=== PATIENT | female | born 1990 | race Caucasian/White ===

== ENCOUNTER 2016-11-23 01:18 | Emergency (ER) | payer OTHER ==
[~2016-11-23 01:18] MED LIST: MYLICON EQUIVAL80 MG PO; OXYCODONE/ACETA1 TA1 PO
--- NOTE | 2016-11-23 01:56 | ED CLINICAL REPORT ---
Clinical Report - Physicians/Mid Levels [facility] [address] [place] [address] 11/23/2016 1:20 Patient: JUAN PONCE Time Seen: 01:27. Arrived- By ambulance. Historian- EMS personnel. HISTORY OF PRESENT ILLNESS Chief Complaint: DECREASED MENTAL STATUS. "Has been drinking". The patient is described as having decreased responsiveness. This started just prior to arrival and is still present. It was gradual in onset and has been constant. The patient has had alcohol consumption recently. No recent drug use. No weakness, numbness or recent fall. She has had difficulty walking. Usually is alert and oriented X3 and usually has normal mobility. Similar symptoms previously: Recent medical care: Not recently seen/assessed. REVIEW OF SYSTEMS No fever, headache, head injury, chest pain or difficulty breathing. No cough, sputum production, blurred vision, sore throat or abdominal pain. No nausea, diarrhea, black stools, difficulty with urination or skin rash. No vomiting or bloody stools. All systems otherwise negative, except as recorded above. PAST HISTORY ( PROBLEMS: Vaginitis. Vaginal Discharge. Discomfort of . [place] Gonzalez Contractions [RuleOut]). Medications: None. Allergies: No Known Drug Allergy. SOCIAL HISTORY Occasional alcohol use. Under the influence in E.D. No drug use. Residence: [place]. ADDITIONAL NOTES The nursing notes have been reviewed. PHYSICAL EXAM Vital Signs: 11/23/2016 01:23 BP: 129/62. HR: 90. RR: 14. O2 saturation: 98%. Temp: 98.4 F. Appearance: The patient's speech is slurred and odor of alcohol is present. Head: Head atraumatic. ENT: Normal ENT inspection. Airway intact. Moist mucous membranes. Pharynx normal. Neck: Normal inspection. Neck supple. CVS: Normal heart rate and rhythm. Heart sounds normal. Pulses normal. Respiratory: No respiratory distress. Breath sounds normal. Abdomen: Soft and nontender. Back: Normal inspection. Skin: Skin warm and dry. Normal skin color. No rash. Normal skin turgor. Extremities: Extremities exhibit normal ROM. No lower extremity edema. Neuro: Alert. Oriented X 3. Abnormal speech. No motor deficit. No sensory deficit. Reflexes normal. LABS, X-RAYS, AND EKG Pulse Oximetry: 11/23/2016 01:23 O2 saturation: 98%. (FIO2 - room air). Interpretation: normal. PROGRESS AND PROCEDURES Course of Care: After discussion of risks and benefits, pt left AMA with her boyfriend. She is alert and oriented x 4. Patient/family counseled. Old ED records reviewed. Disposition: Discharged (left AMA). CLINICAL IMPRESSION Acute mental status change with stupor. Uncomplicated alcohol intoxication. INSTRUCTIONS Drink plenty of fluids. No alcohol. Warnings: Further evaluation is necessary. It is very important to follow up with a physician. GENERAL WARNINGS: Return or contact your physician immediately if your condition worsens or changes unexpectedly, if not improving as expected, or if other problems arise. Follow-up: Follow up with your doctor in two days. (Electronically signed by Austen Stevens DO 11/23/2016 2:11)
--- NOTE | 2016-11-23 01:56 | ED NURSING NOTES ---
Clinical Report - Nurses [facility] [address] [place] [address] 11/23/2016 1:20 Patient: JUAN PONCE TRIAGE Triage time 0123. Acuity: LEVEL 3. Chief Complaint: ALTERED MENTAL STATUS and DISORIENTED and DECREASED RESPONSIVENESS. --: Balwinder West R.N. 01:23 11/23/16. BP: 129/62. HR: 90. RR: 14. O2 saturation: 98%. Temp: 98.4 F. Pain level now 0/10. --: Balwinder West R.N. Weight: 77.1 kg stated. Height/Length: 64 inches Per Patient. BMI: 29.2. --:25 Balwinder West R.N. Medications None. --:24 Balwinder West R.N. Allergies No Known Drug Allergy. --:24 Balwinder West R.N. History Arrived by EMS. Historian: patient. This started today. ( pt at home drinking. family called 911 when pt passed out and became difficult to arouse.). 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 See EMS report. SOCIAL HX: Occasional alcohol use. No drug use. --: Balwinder West R.N. PROBLEMS: Vaginitis. Vaginal Discharge. Discomfort of . . Care. LNMP - Last Normal Menstrual Period. OB History. --:24 Balwinder West R.N. [place] Gonzalez Contractions [RuleOut]. --01:24 Balwinder West R.N. Interventions ID band on patient. --:26 Balwinder West R.N. PHYSICAL ASSESSMENT To room via stretcher. GENERAL / NEURO / PSYCH: Alert. Speech within normal limits. Patient appears well-nourished and neat and clean. HEENT: Pupils equal, round and reactive to light. RESPIRATORY: Respirations not labored. Breath sounds within normal limits. CVS: Capillary refill less than 2 seconds. GI / : Abdomen soft and nontender. SKIN: Skin is warm and dry. Normal skin turgor. --01:27 Balwinder West R.N. ( pt waited for EMS to leave room and sat up and started speaking coherently and without difficulty. pt does seem intoxicated but is no longer difficult to arouse. pt refuses any and all treatments. pt did consent to breathalyzer only. pt demanding we provide her sister's phone number despite our not having it.). --01:48 Balwinder West R.N. NURSING PROGRESS NOTES Head of bed elevated. Reassurance given. Patient identifiers checked. Call light placed in reach. Bed placed in lowest position. Brakes of bed on. --01:27 Balwinder West R.N. 01:43 11/23/2016 IV NS with Normal Saline 1 Liter, Folic Acid 1 mg/mL, Multivitamin Concentrate Intravenous 1 amp/L, Thiamine HCl 100 mg/L: initial bolus 1000 mL (1000 mL/hr), then 500 mL/hr for X2 (NOW) was refused by patient because of she refuses to stay. Balwinder West --01:59 Balwinder West R.N. 01:49 11/23/2016 IV NS with Normal Saline 1 Liter, Folic Acid 1 mg/mL, Multivitamin Concentrate Intravenous 1 amp/L, Thiamine HCl 100 mg/L: initial bolus 1000 mL (1000 mL/hr), then 500 mL/hr for X2 (NOW) was refused by patient because of uncooperative with care. Dante Horn --01:49 Dante Horn, ER Waiter/Waitress Buffet. DISPOSITION / DISCHARGE Departure time: 156. The patient left the Emergency Department against medical advice; patient was accompanied by spouse. The patient appears to be alert, oriented x4, uncooperative, belligerent and using abusive language (mildly intoxicated). The patient notified the ED staff prior to leaving the department and stated is leaving the ED due to personal reasons (pt states, "its normal to be drunk"). Notified the ED physician and charge nurse of patient departure. Prior to leaving the ED, she was advised to stay for completion of treatment and return if needed. She was informed of the risks of leaving and verbalized understanding of these risks. Patient refused to sign form prior to leaving. She left the Emergency Department ambulatory and via private vehicle. ( pt released into care of spouse who seemed sober, a&ox4, and appropriate. signed forms in place of pt. pt refused d/c vitals). --02:01 Balwinder West R.N. Locked/Released at 11/23/2016 2:02 by Balwinder West R.N.
--- NOTE | 2016-11-23 01:56 | ED ORDER SUMMARY ---
..... 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) (11/23/2016 [facility]) (Cancelled: Patient Refusal1:48 [facility] House Shorer) [facility] (Ack 1:32 [facility]) (Cancelled: Patient Refusal1:48 [facility] House Shorer) CMP Urgent (11/23/2016 [facility]) (Ack 1:32 [facility]) (Cancelled: Patient Refusal1:48 [facility] House Shorer) PT with INR Urgent (11/23/2016 [facility]) (Ack 1:32 [facility]) (Cancelled: Patient Refusal1:48 [facility] ER House Shorer) UA-Culture if indicated Urgent (11/23/2016 [facility]) (Ack 1:32 [facility]) (Cancelled: Patient Refusal1:48 [facility] House Shorer) Urine Urgent (11[facility]23/2016 [facility]) (Ack 1:32 [facility]) (Cancelled: Patient Refusal1:48 [facility] House Shorer) Urine Drug Screen Urgent (11/23/2016 [facility]) (Ack 1:32 [facility]) (Cancelled: Patient Refusal1:48 [facility] House Shorer) Ethyl Alcohol Urgent (11/23/2016 [facility] DO) (Ack 1:32 [facility]) (Cancelled: Patient Refusal1:48 [facility] ER House Shorer) POC Glucose (11/23/2016 [facility] DO) (Cancelled: Patient Refusal1:48 [facility] ER House Shorer) MEDICATION ORDERS: IV FLUIDS: IV NS with Normal Saline 1 Liter, Folic Acid 1 mg/mL, Multivitamin Concentrate Intravenous 1 amp/L, Thiamine HCl 100 mg/L: initial bolus 1000 mL (1000 mL/hr), then 500 mL/hr for X2 (NOW) (01:29 11/23/2016 [facility]) (Ack 1:31 [facility] Brooke) ORDER SHEET NOTES: [Electronically signed by Balwinder West R.N. (02:02 11/23/2016)] [Electronically signed by Austen Stevens DO (02:11 11/23/2016)] [Electronically locked/signed by Balwinder West R.N. (02:02 11/23/2016)]
--- NOTE | 2016-11-23 01:56 | ED NURSING NOTES ---
Clinical Report - Nurses [facility] [address] [place] [address] 11/23/2016 1:20 Patient: JUAN PONCE TRIAGE Triage time 0123. Acuity: LEVEL 3. Chief Complaint: ALTERED MENTAL STATUS and DISORIENTED and DECREASED RESPONSIVENESS. --: Balwinder West R.N. 01:23 11/23/16. BP: 129/62. HR: 90. RR: 14. O2 saturation: 98%. Temp: 98.4 F. Pain level now 0/10. --: Balwinder West R.N. Weight: 77.1 kg stated. Height/Length: 64 inches Per Patient. BMI: 29.2. --:25 Balwinder West R.N. Medications None. --:24 Balwinder West R.N. Allergies No Known Drug Allergy. --:24 Balwinder West R.N. History Arrived by EMS. Historian: patient. This started today. ( pt at home drinking. family called 911 when pt passed out and became difficult to arouse.). Treatment VERIFY REP: None. See EMS report. SOCIAL HX: Occasional alcohol use. No drug use. --: Balwinder West R.N. PROBLEMS: Vaginitis. Vaginal Discharge. Discomfort of . . Care. LNMP - Last Normal Menstrual Period. OB History. --:24 Balwinder West R.N. [place] Gonzalez Contractions [RuleOut]. --01:24 Balwinder West R.N. Interventions ID band on patient. --:26 Balwinder West R.N. PHYSICAL ASSESSMENT To room via stretcher. GENERAL / NEURO / PSYCH: Alert. Speech within normal limits. Patient appears well-nourished and neat and clean. HEENT: Pupils equal, round and reactive to light. RESPIRATORY: Respirations not labored. Breath sounds within normal limits. CVS: Capillary refill less than 2 seconds. GI / : Abdomen soft and nontender. SKIN: Skin is warm and dry. Normal skin turgor. --01:27 Balwinder West R.N. ( pt waited for EMS to leave room and sat up and started speaking coherently and without difficulty. pt does seem intoxicated but is no longer difficult to arouse. pt refuses any and all treatments. pt did consent to breathalyzer only. pt demanding we provide her sister's phone number despite our not having it.). --01:48 Balwinder West R.N. NURSING PROGRESS NOTES Head of bed elevated. Reassurance given. Patient identifiers checked. Call light placed in reach. Bed placed in lowest position. Brakes of bed on. --01:27 Balwinder West R.N. 01:43 11/23/2016 IV NS with Normal Saline 1 Liter, Folic Acid 1 mg/mL, Multivitamin Concentrate Intravenous 1 amp/L, Thiamine HCl 100 mg/L: initial bolus 1000 mL (1000 mL/hr), then 500 mL/hr for X2 (NOW) was refused by patient because of she refuses to stay. Balwinder West --01:59 Balwinder West R.N. 01:49 11/23/2016 IV NS with Normal Saline 1 Liter, Folic Acid 1 mg/mL, Multivitamin Concentrate Intravenous 1 amp/L, Thiamine HCl 100 mg/L: initial bolus 1000 mL (1000 mL/hr), then 500 mL/hr for X2 (NOW) was refused by patient because of uncooperative with care. Dante Horn --01:49 Dante Horn, ER Golf Stud Riveter. DISPOSITION / DISCHARGE Departure time: 156. The patient left the Emergency Department against medical advice; patient was accompanied by spouse. The patient appears to be alert, oriented x4, uncooperative, belligerent and using abusive language (mildly intoxicated). The patient notified the ED staff prior to leaving the department and stated is leaving the ED due to personal reasons (pt states, "its normal to be drunk"). Notified the ED physician and charge nurse of patient departure. Prior to leaving the ED, she was advised to stay for completion of treatment and return if needed. She was informed of the risks of leaving and verbalized understanding of these risks. Patient refused to sign form prior to leaving. She left the Emergency Department ambulatory and via private vehicle. ( pt released into care of spouse who seemed sober, a&ox4, and appropriate. signed forms in place of pt. pt refused d/c vitals). --02:01 Balwinder West R.N. Locked/Released at 11/23/2016 2:02 by Balwinder West R.N.
--- NOTE | 2016-11-23 01:56 | ED ORDER SUMMARY ---
..... 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) (11/23/2016 [facility]) (Cancelled: Patient Refusal1:48 [facility] ER Case Management Social Worker) CBC w Diff Urgent (11/23/2016 [facility]) (Ack 1:32 [facility]) (Cancelled: Patient Refusal1:48 [facility] ER Case Management Social Worker) CMP Urgent (11/23/2016 [facility]) (Ack 1:32 [facility]) (Cancelled: Patient Refusal1:48 [facility] ER Case Management Social Worker) PT with INR Urgent (11/23/2016 [facility]) (Ack 1:32 [facility]) (Cancelled: Patient Refusal1:48 [facility] ER Case Management Social Worker) UA-Culture if indicated Urgent (11/23/2016 [facility]) (Ack 1:32 [facility]) (Cancelled: Patient Refusal1:48 [facility] ER Case Management Social Worker) Urine Urgent (11/23/2016 [facility]) (Ack 1:32 [facility]) (Cancelled: Patient Refusal1:48 [facility] ER Case Management Social Worker) Urine Drug Screen Urgent (11/23/2016 [facility]) (Ack 1:32 [facility]) (Cancelled: Patient Refusal1:48 [facility] ER Case Management Social Worker) Ethyl Alcohol Urgent (11/23/2016 [facility] DO) (Ack 1:32 [facility]) (Cancelled: Patient Refusal1:48 [facility] ER Case Management Social Worker) POC Glucose (11/23/2016 [facility] DO) (Cancelled: Patient Refusal1:48 [facility] ER Case Management Social Worker) MEDICATION ORDERS: IV FLUIDS: IV NS with Normal Saline 1 Liter, Folic Acid 1 mg/mL, Multivitamin Concentrate Intravenous 1 amp/L, Thiamine HCl 100 mg/L: initial bolus 1000 mL (1000 mL/hr), then 500 mL/hr for X2 (NOW) (01:29 11/23/2016 [facility]) (Ack 1:31 Kwabena Brooke) ORDER SHEET NOTES: [Electronically signed by Balwinder West R.N. (02:02 11/23/2016)] [Electronically signed by Austen Stevens DO (02:11 11/23/2016)] [Electronically locked/signed by Balwinder West R.N. (02:02 11/23/2016)]
--- NOTE | 2016-11-23 01:56 | ED CLINICAL REPORT ---
Clinical Report - Physicians/Mid Levels [facility] [address] [place] [address] 11/23/2016 1:20 Patient: JUAN PONCE Time Seen: 01:27. Arrived- By ambulance. Historian- EMS personnel. HISTORY OF PRESENT ILLNESS Chief Complaint: DECREASED MENTAL STATUS. "Has been drinking". The patient is described as having decreased responsiveness. This started just prior to arrival and is still present. It was gradual in onset and has been constant. The patient has had alcohol consumption recently. No recent drug use. No weakness, numbness or recent fall. She has had difficulty walking. Usually is alert and oriented X3 and usually has normal mobility. Similar symptoms previously: Recent medical care: Not recently seen/assessed. REVIEW OF SYSTEMS No fever, headache, head injury, chest pain or difficulty breathing. No cough, sputum production, blurred vision, sore throat or abdominal pain. No nausea, diarrhea, black stools, difficulty with urination or skin rash. No vomiting or bloody stools. All systems otherwise negative, except as recorded above. PAST HISTORY ( PROBLEMS: Vaginitis. Vaginal Discharge. Discomfort of . [place] Gonzalez Contractions [RuleOut]). Medications: None. Allergies: No Known Drug Allergy. SOCIAL HISTORY Occasional alcohol use. Under the influence in E.D. No drug use. Residence: [place]. ADDITIONAL NOTES The nursing notes have been reviewed. PHYSICAL EXAM Vital Signs: 11/23/2016 01:23 BP: 129/62. HR: 90. RR: 14. O2 saturation: 98%. Temp: 98.4 F. Appearance: The patient's speech is slurred and odor of alcohol is present. Head: Head atraumatic. ENT: Normal ENT inspection. Airway intact. Moist mucous membranes. Pharynx normal. Neck: Normal inspection. Neck supple. CVS: Normal heart rate and rhythm. Heart sounds normal. Pulses normal. Respiratory: No respiratory distress. Breath sounds normal. Abdomen: Soft and nontender. Back: Normal inspection. Skin: Skin warm and dry. Normal skin color. No rash. Normal skin turgor. Extremities: Extremities exhibit normal ROM. No lower extremity edema. Neuro: Alert. Oriented X 3. Abnormal speech. No motor deficit. No sensory deficit. Reflexes normal. LABS, X-RAYS, AND EKG Pulse Oximetry: 11/23/2016 01:23 O2 saturation: 98%. (FIO2 - room air). Interpretation: normal. PROGRESS AND PROCEDURES Course of Care: After discussion of risks and benefits, pt left AMA with her boyfriend. She is alert and oriented x 4. Patient/family counseled. Old ED records reviewed. Disposition: Discharged (left AMA). CLINICAL IMPRESSION Acute mental status change with stupor. Uncomplicated alcohol intoxication. INSTRUCTIONS Drink plenty of fluids. No alcohol. Warnings: Further evaluation is necessary. It is very important to follow up with a physician. GENERAL WARNINGS: Return or contact your physician immediately if your condition worsens or changes unexpectedly, if not improving as expected, or if other problems arise. Follow-up: Follow up with your doctor in two days. (Electronically signed by Austen Stevens DO 11/23/2016 2:11)
--- NOTE | 2016-11-23 02:11 | ED MED RECONCILIATION SUMMARY ---
Patient: JUAN PONCE Medication Reconciliation Report [facility] VisitID: [id number] [address] [place] [address] 26y, F Registration Date/Time: 11/23/2016 Weight: 77.1 kg Height/Length: 64 in. BMI: 29.2 ALLERGIES: No Known Drug Allergy The patient's Home Medications are listed below: NONE. The source(s) of the original Home Medication information: Not obtained. The following Medications were given to the patient in the Emergency Department: None. The following Medications were prescribed to the patient: None.
--- NOTE | 2016-11-23 02:11 | ED DISCHARGE INSTRUCTIONS ---
Patient: JUAN PONCE General Instructions [facility] VisitID: [id number] [address] [place] [address] 26y, F Registration Date/Time: 11/23/2016 Acute mental status change with stupor. Uncomplicated alcohol intoxication. INSTRUCTIONS Drink plenty of fluids. No alcohol. Warnings: Further evaluation is necessary. It is very important to follow up with a physician. GENERAL WARNINGS: Return or contact your physician immediately if your condition worsens or changes unexpectedly, if not improving as expected, or if other problems arise. Follow-up: Follow up with your doctor in two days. ADDITIONAL INFORMATION Alcohol Intoxication Alcohol intoxication occurs when you drink alcohol faster than your liver can remove it from your system. Alcohol intoxication affects your judgment and coordination. Very high blood alcohol levels can cause coma, very slow breathing and even . If you drink alcohol every day, this may gradually cause permanent damage to your liver, brain, heart, pancreas and other organs. Alcohol use during may cause permanent damage to the growing baby. Home Care: Do not drink any more alcohol. DO NOT DRIVE until all effects of the alcohol have worn off. Get lots of rest over the next few days. Drink plenty of water and other non-alcoholic liquids. Try to eat regular meals. If you have been drinking heavily on a daily basis, you may go through alcohol withdrawl. This is also called the shakes or DTs. The usual symptoms last 3 to 4 days and may include nervousness, shakiness, nausea, sweating or sleeplessness. During this time, it is best that you stay with family or friends who can help and support you. You can also admit yourself to a residential detox program. If your symptoms are severe, contact your doctor for medicines to help. Follow Up: If alcohol is causing a problem in your life, these and other organizations can help you: Alcoholics Anonymous offers support through a self-help fellowship. There are no dues or fees. See the Yellow Pages and call for time and place of meetings. www.aa.org [employer] offers support to families of alcohol users. 253.336.7855 www.al-anon.org [employer] [place] On Alcoholism And Drug Dependence 646-979-0717 www.ncadd.org There are also inpatient or residential alcohol detox programs. Check the Internet or phonebook Yellow Pages under Drug Abuse & Treatment Centers. Get Prompt Medical Attention if any of the following occur: there) You have been given the following additional information: Alcohol Intoxication (Electronically signed by Austen Stevens DO 11/23/2016 2:11)
--- NOTE | 2016-11-23 02:11 | ED DISCHARGE INSTRUCTIONS ---
Patient: JUAN PONCE General Instructions [facility] VisitID: [id number] [address] [place] [address] 26y, F Registration Date/Time: 11/23/2016 Acute mental status change with stupor. Uncomplicated alcohol intoxication. INSTRUCTIONS Drink plenty of fluids. No alcohol. Warnings: Further evaluation is necessary. It is very important to follow up with a physician. GENERAL WARNINGS: Return or contact your physician immediately if your condition worsens or changes unexpectedly, if not improving as expected, or if other problems arise. Follow-up: Follow up with your doctor in two days. ADDITIONAL INFORMATION Alcohol Intoxication Alcohol intoxication occurs when you drink alcohol faster than your liver can remove it from your system. Alcohol intoxication affects your judgment and coordination. Very high blood alcohol levels can cause coma, very slow breathing and even . If you drink alcohol every day, this may gradually cause permanent damage to your liver, brain, heart, pancreas and other organs. Alcohol use during may cause permanent damage to the growing baby. Home Care: Do not drink any more alcohol. DO NOT DRIVE until all effects of the alcohol have worn off. Get lots of rest over the next few days. Drink plenty of water and other non-alcoholic liquids. Try to eat regular meals. If you have been drinking heavily on a daily basis, you may go through alcohol withdrawl. This is also called the shakes or DTs. The usual symptoms last 3 to 4 days and may include nervousness, shakiness, nausea, sweating or sleeplessness. During this time, it is best that you stay with family or friends who can help and support you. You can also admit yourself to a residential detox program. If your symptoms are severe, contact your doctor for medicines to help. Follow Up: If alcohol is causing a problem in your life, these and other organizations can help you: Alcoholics Anonymous offers support through a self-help fellowship. There are no dues or fees. See the Yellow Pages and call for time and place of meetings. www.aa.org [employer] offers support to families of alcohol users. 677.677.7156 www.al-anon.org [employer] [place] On Alcoholism And Drug Dependence 490-729-4677 www.ncadd.org There are also inpatient or residential alcohol detox programs. Check the Internet or phonebook Yellow Pages under Drug Abuse & Treatment Centers. Get Prompt Medical Attention if any of the following occur: there) You have been given the following additional information: Alcohol Intoxication (Electronically signed by Austen Stevens DO 11/23/2016 2:11)
--- NOTE | 2016-11-23 02:11 | ED MED RECONCILIATION SUMMARY ---
Patient: JUAN PONCE Medication Reconciliation Report Formerly [facility] VisitID: [id number] [address] [place] [place] [address] 26y, F Registration Date/Time: 11/23/2016 Weight: 77.1 kg Height/Length: 64 in. BMI: 29.2 ALLERGIES: No Known Drug Allergy The patient's Home Medications are listed below: NONE. The source(s) of the original Home Medication information: Not obtained. The following Medications were given to the patient in the Emergency Department: None. The following Medications were prescribed to the patient: None.
--- NOTE | 2016-11-23 02:11 | ED MAR SUMMARY ---
..... Medication Administration Record [facility] [address] [place], [place] [id number] Patient: JUAN PONCE Visit ID: [id number] 26y, F Weight: 77.1 kg Height/Length: 64 in BMI: 29.2 ALLERGIES: No Known Drug Allergy
--- NOTE | 2016-11-23 02:11 | ED MAR SUMMARY ---
..... Medication Administration Record [facility] [address] [place], [place] [id number] Patient: JUAN PONCE Visit ID: [id number] 26y, F Weight: 77.1 kg Height/Length: 64 in BMI: 29.2 ALLERGIES: No Known Drug Allergy
== END 2016-11-23 01:55 | disposition home or self-care (01) ==
LOC: ED SRH 01:18
DX: F10.120 Alcohol abuse with intoxication, uncomplicated (principal); R41.82 Altered mental status, unspecified